=== PATIENT | female | born 1990 | race Caucasian/White ===

== ENCOUNTER 2022-12-09 05:05 | Emergency (ER) | payer BC, SELFPAY ==
[2022-12-09 05:14] VITALS: BP 128/80; PULSE 74; RESP 18; TEMP 36.5; O2SAT 98; BMI 35.4
--- NOTE | 2022-12-09 05:33 | ED_ITS ---
HPI - Female Genitourinary General Chief complaint: Urogenital Problems, Female Stated complaint: thinks IUD is moving Time Seen by Provider: 12/09/22 05:16 Source: patient Mode of arrival: ambulatory History of Present Illness HPI Narrative: 32-year-old female with IUD placed 2 months ago presents to the ED with what she describes as vaginal/cervical area pain. No upper abdominal pain. She says that she was working more heavily than usual around the yd today but no trauma. Says that she awoke with a crampy type feeling located in the high vagina/lower cervix. It has been present about 1 hour. She has not tried taking any Tylenol for her pain and she is not allowed to take NSAIDs due to her Crohn's disease and increased risk of bleeding. No fever. No trauma or injury. No diarrhea, no vomiting. Denies upper abdominal pain. She reports that she has had ovarian cysts before and this does feel quite different. No new sexual partners. Reports that she is prone to urinary tract infections and yeast infections. States that these feel different. Has not tried any other home treatments prior to coming to the emergency department. No recent antibiotics or infections per her report. Past medical history notable for Crohn's disease, obesity, depression. Home medications Humira, azathioprine, Lexapro, Breo Ellipta. She has had tubal ligation, multiple prior abdominal surgeries. Nonsmoker. ROS is notable for the gynecological symptoms as above only, otherwise denies times 12 systems. Related Data Home Medications Medication Instructions Recorded Confirmed adalimumab 40 mg/0.8 mL 40 mg subcut Q2W 02/12/22 12/09/22 subcutaneous syringe kit (Humira) azathioprine 100 mg tablet 100 mg PO QDAY 02/12/22 12/09/22 azathioprine 50 mg tablet 50 mg PO QDAY 02/12/22 12/09/22 escitalopram oxalate 20 mg tablet 20 mg PO QDAY 02/12/22 12/09/22 (Lexapro) inhalational spacing device (Space #1 ea 02/12/22 09/24/22 Chamber) lorazepam 1 mg tablet 1 mg PO QDAY PRN 02/12/22 12/09/22 fluticasone furoate 100 1 inh inhalation DAILY 12/09/22 12/09/22 mcg-vilanterol 25 mcg/dose inhalation powder (Breo Ellipta) Previous Rx's Medication Instructions Recorded albuterol sulfate 90 mcg/actuation 2 puff inhalation Q4H PRN 08/31/22 aerosol inhaler (Proventil HFA) shortness of breath or wheezing #8.5 grams inhalational spacing device #1 ea 08/31/22 (Aerochamber MV spacer) Allergies Allergy/AdvReac Type Severity Reaction Status Date / Time NSAIDS (Non-Steroidal Allergy Severe bleeding Verified 09/24/22 12:56 Anti-Inflamma infliximab [From Remicade] AdvReac Severe Arthritis Verified 09/24/22 12:56 sertraline AdvReac Unknown Nausea Verified 09/24/22 12:56 [facility] Medical History 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-10) Anemia ?D64.9 - Anemia, unspecified (ICD-10) Anxiety ?F41.9 - Anxiety disorder, unspecified (ICD-10) Bronchospasm ?J98.01 - Acute bronchospasm (ICD-10) Class 1 obesity ?E66.9 - Obesity, unspecified (ICD-10) Crohn's disease ?K50.90 - Crohn's disease, unspecified, without complications (ICD-10) History of depression ?Z86.59 - Personal history of other mental and behavioral disorders (ICD-10) History of scarlet fever (1996) ?Z86.19 - Personal history of other infectious and parasitic diseases (ICD- 10) History of scoliosis ?Z87.39 - Personal history of other diseases of the musculoskeletal system and connective tissue (ICD-10) History of vitamin D deficiency ?Z86.39 - Personal history of other endocrine, nutritional and metabolic disease (ICD-10) Hx of vaginal delivery Iron deficiency anemia ?D50.9 - Iron deficiency anemia, unspecified (ICD-10) Surgical History History of appendectomy (2010) ?Z90.49 - Acquired absence of other specified parts of digestive tract (ICD- 10) History of colonoscopy (08/19/21) ?Z98.890 - Other specified postprocedural states (ICD-10) History of colposcopy (12/2014) ?Z98.890 - Other specified postprocedural states (ICD-10) History of ovarian cystectomy ?Z98.890 - Other specified postprocedural states (ICD-10) ?Z87.42 - Personal history of other diseases of the female genital tract (ICD-10) History of surgical removal of terminal ileum (02/15/13) ?Z98.890 - Other specified postprocedural states (ICD-10) ?Z90.49 - Acquired absence of other specified parts of digestive tract (ICD- 10) Status post delivery (08/22/19) ?Z98.891 - History of uterine scar from previous surgery (ICD-10) Status post tubal ligation (08/22/19) ?Z98.51 - Tubal ligation status (ICD-10) Family History Mother Stroke, Onset Age: 40 High blood pressure IBS (irritable bowel syndrome) Migraine Multiple myeloma Father High cholesterol High blood pressure Osteoporosis Locfc-5-csntlwkkfqh deficiency Maternal Grandmother Ulcerative colitis Brother Nnczh-6-lkuswlrteqp deficiency Aunt Vmcif-8-bjatogpouem deficiency Social History Smoking Status: Never smoker Do you use any of these nicotine containing products: None Second hand tobacco smoke exposure: No How often do you have a drink containing alcohol: monthly or less How often do you have six or more drinks on one occasion: Never AUDIT-C Alcohol total score: 1 Non-prescribed substance use: denies use service: No Exam Const: Vital Signs, click to edit/add: Vital Signs - 24 hr 12/09/22 05:14 Temperature 97.7 F Pulse Rate [Pulse Oximeter] 74 Respiratory Rate 18 Blood Pressure [Le ft Upper Arm] 128/80 Pulse Oximetry 98 Oxygen Delivery Me thod Room Air Documenting provider has reviewed patient's vital signs: yes Common normals: no apparent distress General appearance: cooperative Other: Appears well-nourished, well-hydrated, not acutely ill. HENMT: Common normals: normocephalic Head and scalp: normocephalic Face and sinus: normal facial exam Mouth: oral and palatal mucosa normal Thr oat: posterior oropharynx normal Eye: Common normals: conjunctivae normal General eye: normal appearance of both eyes Conjunctiva: conjunctiva(e) normal Neck & C-Spine: Common normals: no lymphadenopathy Resp: Common normals: normal respiratory effort, no use of accessory muscles and clear to auscultation bilaterally Effort & inspection: able to speak in complete sentences Auscultation: clear to auscultation bilaterally Cardio: Common normals: regular rate, regular rhythm, S1 normal heart sound, S2 normal heart sound and no murmurs Rate: regular rate Rhythm: regular rhythm Heart sounds: S1 normal and S2 normal GI: Common normals: Normal to inspection, nondistended, normoactive bowel sounds present, soft to palpation, no hepatosplenomegaly and no masses Palpation: soft and no hepatosplenomegaly Other: Mildly tender to suprapubic region only, no rebound tenderness or guarding : Common normals: external appearance normal, appearance of the vagina normal, appearance of the cervix normal, adnexae non-tender and no adnexal masses Other: Ovaries are difficult to feel due to body habitus but no obvious mass. IUD strings are 2 cm long, appear to be Mirena due to dark hinojosa color. IUD tip not visible nor palpable. Scant amount of mucousy brown discharge normal in appearance. Cervix is multiparous in appearance. Cervix is mildly tender to manipulation but no severe tenderness. No obvious mass or polyp. Fundus is not tender to manipulation. Extremity: Common normals: normal to inspection, normal capillary refill and no pedal edema Neuro: Speech: speech normal Gait (neuro): normal gait Motor exam: no movement abnormalities noted Psych: Common normals: speech normal Attitude: calm and engaged Activity/motor behavior: appropriate eye contact Speech: normal speech Other: Mildly anxious but thought process logical. Insight and judgment seem appropriate Skin: Common normals: no rashes or lesions noted General skin exam: no rashes or lesions noted Course Vital Signs Vital signs: Initial Vital Signs Temperature 97.7 F 12/09/22 05:14 Temperature Source Temporal Artery Scan 12/09/22 05:14 Pulse Rate 74 12/09/22 05:14 Pulse Rhythm Regular 12/09/22 05:14 Respiratory Rate 18 12/09/22 05:14 Blood Pressure 128/80 12/09/22 05:14 Blood Pressure Mean 96 12/09/22 05:14 Pulse Oximetry 98 12/09/22 05:14 Oxygen Delivery Method Room Air 12/09/22 05:14 Vital Signs Temperature 97.7 F 12/09/22 05:14 Pulse Rate 74 12/09/22 05:14 Respiratory Rate 18 12/09/22 05:14 Blood Pressure 128/80 12/09/22 05:14 Pulse Oximetry 98 12/09/22 05:14 Oxygen Delivery Method Room Air 12/09/22 05:14 Temperature 97.7 F 12/09/22 05:14 Pulse Rate 74 12/09/22 05:14 Respiratory Rate 18 12/09/22 05:14 Blood Pressure 128/80 12/09/22 05:14 Pulse Oximetry 98 12/09/22 05:14 Oxygen Delivery Method Room Air 12/09/22 05:14 MDM - Female Genitourinary MDM Narrative Medical decision making narrative: Differential diagnosis includes urinary tract infection, bacterial vaginosis, IUD migration, ovarian pathology, uterine pathology or other intra-abdominal pathology. Exam is overall reassuring couple wet prep collected. Recommended urinalysis. IUD appears properly in place. Offered ultrasound to look at ovaries, uterus and IUD more closely. Patient states that this does not feel like it is higher up in the pelvis but rather something low, at the level of the cervix or vagina and declines ultrasound at this time which is certainly reasonable as her exam is reassuring. We will await the wet prep and urinalysis and treat with 1 [place] tablet. Re-evaluate after. Update: Elected to do a CT scan of the abdomen and pelvis because of the 3+ blood. There is no UVJ stone or hydronephrosis but there is a tiny stone in the bladder, I suspect this was recently passed, confirmed with radiology report. Pain much better after 1 [place] tablet. Findings discussed with patient. She is comfortable with this diagnosis and will follow up with Gynecology if her symptoms fail to improve. Lab Data Attestation: I reviewed the patient's lab results. Lab results narrative: Reassuring Labs: Lab Results 12/09/22 12/09/22 Range/Units 05:35 05:42 Urine Color Yellow (Yellow) Urine Appearance Cloudy A (Clear) Urine pH 5.5 (5.0-8.5) Ur Specific [place] >= 1.030 (1.000-1.030) Urine Protein 1+ A (Negative) Urine Glucose (UA) Negative (Negative) Urine Ketones Negative (Negative) Urine Blood 3+ A (Negative) Urine Nitrite Negative (Negative) Urine Bilirubin 1+ A (Negative) Urine Urobilinogen 0.2 (0.2-1.0) Ur Leukocyte Esterase Negative (Negative) Urine RBC 25-50 A (0-2) Urine WBC 2-5 (0-5) Ur Squamous Epith Cells Few (None-Few) Calcium Oxalate Crystal Few A (None) Urine Bacteria Few A (None) Urine Mucus Moderate A (None) Vaginal Trichomonas No Trichomonas Seen (None Seen) Vaginal Yeast No Yeast Seen (None Seen) Vaginal Clue Cells No Clue Cells Seen (None Seen) Imaging Data CT scan - abdomen: My impression: Tiny stone in the bladder, suspect recently passed. IUD normally in place Radiologist's impression: IMPRESSION: No evidence of nephroureterolithiasis or hydroureteronephrosis. Punctate hyperdensity layering within the left bladder near the region of the UVJ which may represent recently passed stone. Discharge Plan Discharge Clinical Impression: Kidney stone Patient Disposition: Home w/ Parent or Adult Condition: Improved Instructions: Kidney Stones (ED) Additional Instructions: As we discussed, your IUD seems perfectly in place and there are no signs of infection. This is great news. The CT scan shows a tiny kidney stone that has recently passed into the bladder. As we discussed, it often causes pain when it gets stuck at the junction between the ureter and the bladder. I suspect that this is what caused her pain. There does not seem to be any type of gynecological issue. Continue to drink lots of fluids and pass the stone. It does not tend to hurt as much passing outside of the body in women as min. You may continue to use Tylenol as needed for pain. There are no signs of other large stones hiding up in your kidneys that would cause recurrent problems. If you continue to have issues, I would follow-up with your ladder operator for a 2nd opinion on the IUD. If you start running high fevers over 100.4 in the next couple of days, this can be a sign of an infection and you should be re- evaluated. You may resume all typical activities. Activity Level: No Restrictions Discharge Diet: Regular Prescriptions: No Action (DME) Space Chamber Spacer See Rx Instructions .ROUTE .MEDSUPPLY Qty: 1 Patient Comments: USE DIRECTED WITH INHALER Rx Instructions: As directed Humira 40 mg/0.8 mL syringe kit 40 mg subcut Q2W escitalopram oxalate [Lexapro] 20 mg tablet 20 mg PO QDAY lorazepam 1 mg tablet 1 mg PO QDAY PRN azathioprine 100 mg tablet 100 mg PO QDAY azathioprine 50 mg tablet 50 mg PO QDAY albuterol sulfate [Proventil HFA] 90 mcg/actuation HFA aerosol inhaler 2 puff inhalation Q4H PRN (Reason: shortness of breath or wheezing) Qty: 8.5 11RF Rx Instructions: generic ok (DME) Aerochamber MV Spacer See Rx Instructions .Route Qty: 1 0RF Rx Instructions: As directed fluticasone furoate-vilanterol [Breo Ellipta] 100-25 mcg/dose blister with device 1 inh inhalation DAILY Follow Up/Referrals: Eula Cheatham MD [Primary Care Provider] - Stand Alone Forms: [facility] Info Instructions
[2022-12-09 05:54] LABS: Appearance Urine Cloudy (Clear); Bilirubin Urine 1+ (Negative); Blood Urine 3+ (Negative); Color Urine Yellow (Yellow); Glucose Urine Negative (Negative); Ketones Urine Negative (Negative); Leukocyte Esterase Urine Negative (Negative); Nitrite Urine Negative (Negative); Protein Urine 1+ (Negative); Specific Gravity Urine >= 1.030 (1.000-1.030); Urobilinogen Urine 0.2 (0.2-1.0); pH Urine 5.5 (5.0-8.5)
[2022-12-09 06:01] LABS: Clue Cells No Clue Cells Seen (None Seen); Trichomonas No Trichomonas Seen (None Seen); Yeast No Yeast Seen (None Seen)
[2022-12-09] MEDS: HYDROCODONE-ACETAMIN 5-325 MG 1 TAB PO (06:05)
--- NOTE | 2022-12-09 06:06 | CRLHL7_ITS ---
For Patients: As a result of the Century Cures Act, medical imaging exams and procedure reports are released immediately into your electronic medical record. You may view this report before your referring provider. If you have questions, please contact your health care provider. INDICATION: hematuria, pelvic pain, hx chrones TECHNIQUE: CT abdomen and pelvis without contrast, stone protocol. COMPARISON: None. FINDINGS: Kidney/ureters: Kidneys are normal in caliber. No kidney or ureteral stones and no hydronephrosis. No sign of perinephric inflammation. Ureters are normal in caliber.Punctate hyperdensity layering within the left bladder near the region of the UVJ which may represent recently passed stone. The bladder is decompressed. Liver/gallbladder/bile ducts: The liver is normal in size, shape and attenuation. Gallbladder is normal without visualized stones or inflammation. No biliary dilatation. Spleen/pancreas/adrenal glands: The spleen, adrenal glands and pancreas are within normal limits. GI tract: No evidence of bowel obstruction. Status post appendectomy. Mild fecal retention. Evaluation of bowel is limited due to lack of contrast. Abdominal wall/omentum/peritoneum: No free air or significant free fluid. No mass or inflammation. Lymph nodes: No lymphadenopathy. Pelvis: Unremarkable pelvis. IUD noted. Lower chest: Unremarkable. IMPRESSION: No evidence of nephroureterolithiasis or hydroureteronephrosis. Punctate hyperdensity layering within the left bladder near the region of the UVJ which may represent recently passed stone. Otherwise, no evidence of acute intra-abdominal/pelvic process on this unenhanced CT. Please note that all CT scans at this facility use dose modulation, iterative reconstruction, and/or weight-based dosing when appropriate to reduce radiation dose to as low as reasonably achievable. Dictated by Higinio Lou MD @ 12/09/2022 7:32:58 AM (Electronically Signed)
[2022-12-09 06:07] LABS: RBC Urine 25-50 (0-2)
[2022-12-09 06:08] LABS: Bacteria Urine Few; Calcium Oxalate Crystals Urine Few; Squamous Epithelial Cell Urine Few (None-Few)
[2022-12-09 06:09] LABS: Mucus Urine Moderate
== END 2022-12-09 07:50 | disposition home or self-care (01) ==
PROVIDERS: Emergency Provider Family Medicine; PCP Emergency Medicine
DX: N20.0 Calculus of kidney (principal)
CPT/HCPCS: 74176; 81003; 81015; 87086; 87210; 99283; 99284; A9270

== ENCOUNTER 2024-05-09 19:16 | Outpatient (CLI) | payer BC, SELFPAY ==
--- NOTE | 2024-06-05 12:37 | W.PM.SLEEP ---
Sleep Study Details Details Interpreting Provider: Miguel Date of Sleep Study: 05/09/24 Sleep Study Details: STUDY TYPE:? Home unattended ? BMI:? 37.2 ORDERING PROVIDER:Kanika Rivera INDICATION:? Concerned about sleep apnea ? SLEEP SUMMARY:? 338 minutes monitored RESPIRATORY SUMMARY:? AHI 4.3, supine AHI 10.9, left lateral 2.7 Low oxygen 90 Snoring 38.5% PERIODIC LIMB MOVEMENTS OF SLEEP:? Not recorded CARDIAC:? Range 59-112, mean 80.9 IMPRESSION:? This study does not demonstrate significant obstructive sleep apnea overall however the patient has mild sleep apnea in the supine position RECOMMENDATION: Recommend avoidance of supine sleep. If sleep disorder strongly suspected recommend an in-lab study.
== END 2024-05-09 19:17 | disposition home or self-care (01) ==
LOC: SLEEP 19:20
PROVIDERS: PCP Emergency Medicine; Visit Provider Otolaryngology
DX: G47.39 Other sleep apnea (principal); R06.83 Snoring
CPT/HCPCS: 95806

== ENCOUNTER 2024-05-11 13:06 | Outpatient (CLI) | payer BC, SELFPAY ==
--- NOTE | 2024-05-11 13:00 | CRLHL7_ITS ---
For Patients: As a result of the Century Cures Act, medical imaging exams and procedure reports are released immediately into your electronic medical record. You may view this report before your referring provider. If you have questions, please contact your health care provider. Indication: Sinusitis. Technique: Noncontrast axial CT of the paranasal sinuses with coronal reformats are provided. No comparisons. Findings: The visualized paranasal sinuses are clear. The ostiomeatal complexes are patent bilaterally. The visualized intraorbital contents appear within normal limits. Impression: Unremarkable CT of the paranasal sinuses. Please note that all CT scans at this facility use dose modulation, iterative reconstruction, and/or weight-based dosing when appropriate to reduce radiation dose to as low as reasonably achievable. Dictated by Gregorio Martinez MD @ 05/12/2024 4:59:42 PM (Electronically Signed)
== END 2024-05-11 13:07 | disposition home or self-care (01) ==
LOC: CT 13:07
PROVIDERS: PCP Emergency Medicine; Visit Provider Otolaryngology
DX: J32.9 Chronic sinusitis, unspecified (principal)
CPT/HCPCS: 70486

== ENCOUNTER 2024-06-06 10:12 | Outpatient (CLI) | payer BC, SELFPAY | END 2024-06-06 10:13 | disposition home or self-care (01) | LOC: LKVREF 10:14 | PROVIDERS: PCP Emergency Medicine; Visit Provider Emergency Medicine | DX: Z13.228 Encounter for screening for other metabolic disorders (principal) | CPT/HCPCS: 80048 ==

== ENCOUNTER 2024-06-15 10:36 | Day surgery (SDC) | payer BC, SELFPAY ==
[2024-06-15] VITALS (17 sets, daily range): BP systolic 105–126; BP diastolic 66–95; PULSE 71–90; RESP 16; TEMP 36.1–36.8; O2SAT 92–100; BMI 35.6
[2024-06-15] MEDS: OXYMETAZOLINE 0.05% NASAL SPRAY 2 SPRAY NOSTRIL-B (10:55)
[2024-06-15 11:10] LABS: Ur HCG Qualitative* Negative (Negative)
[2024-06-15] MEDS: SODIUM CHLORIDE 0.9 % (FLUSH) 10 ML SYRINGE IVF ×2 (11:40→14:51)
[2024-06-15] MEDS: LACTATED RINGERS 1000 ML 1,000 ML 100 ML IV (12:00)
[2024-06-15] MEDS: COCAINE HCL 4 % 4 ML SOLUTION NOSTRIL-B (12:23)
[2024-06-15] MEDS: AYR SALINE NASAL GEL 1 APPLIC NOSTRIL-B (12:35)
[2024-06-15] MEDS: BUPIVACAINE 0.5%/EPINEPHRINE 0.9 MG (30.9 ML) INJECTION (12:46)
[2024-06-15] MEDS: MUPIROCIN 1 GM PACKET 1 APPLIC TOPICAL (12:52)
[2024-06-15] MEDS: LACTATED RINGERS 1000 ML 1,000 ML 125 ML IV (13:00)
--- NOTE | 2024-06-15 13:00 | W.PM.ENTPROC ---
Procedure Note Date of procedure: 06/15/24 Procedure: Preoperative diagnosis chronic tonsillitis, adenotonsillar hypertrophy, upper airway obstruction, nasal obstruction, deviated nasal septum, left middle turbinate frank bullosa, nasal obstruction, nasal headache, bilateral inferior turbinate hypertrophy Postoperative diagnosis same Procedure adenotonsillectomy, septoplasty, endoscopic partial resection left middle turbinate frank bullosa, submucous partial resection bilateral inferior turbinates Under general endotracheal anesthesia the patient was prepped and draped in usual fashion. The [place] mouth gag was inserted the tongue retracted forward. No submucous cleft was noted on inspection or palpation. The right and left tonsils were removed with a combination of needlepoint cautery, bipolar cautery and suction cautery. Meticulous hemostasis was achieved. The adenoid pad was visualized with a laryngeal mirror and removed with suction cautery. The nose was decongested injected. Incision was made the septal cartilage just anterior to the right area 3 deflection. Mucosa on either side the deflection was elevated a large piece of cartilage and bone resected. This was then trimmed and returned to intraseptal space to medialized the septum. In the frank bullosa was incised along its lateral aspect and the bone infractured and then crushed with the [place] forceps. As stab incision was made in the anterior of the right inferior turbinate a tunnel created with a [place] dissector. A conservative anterior submucous resection was performed in the Coblation was used to cauterize intramurally along the inferior 10%. This was repeated on the opposite side in identical fashion. Merocel packing coated in Bactroban was placed above the septal flap on each side. The patient procedure well was taken recovery in satisfactory condition. The patient was extubated in the operating room taken recovery in satisfactory condition. Blood loss was less than 10 mL. Surgeon: Nazario Rivera MD
--- NOTE | 2024-06-15 13:16 | W.ANESCHARGE ---
Anesthesia Charges Start Date/Time Anesthesia Start Date: 06/15/24 Anesthesia Start Time: 12:00 Stop Date/Time Anesthesia Stop Date: 06/15/24 Anesthesia Stop Time: 13:18
--- NOTE | 2024-06-15 13:16 | W.ANESCHARGE ---
Anesthesia Charges Start Date/Time Anesthesia Start Date: 06/15/24 Anesthesia Start Time: 12:00 Stop Date/Time Anesthesia Stop Date: 06/15/24 Anesthesia Stop Time: 13:18
[2024-06-15] MEDS: fentaNYL 100 MCG/2 ML inj 50 MCG IVP ×3 (13:25→13:56)
[2024-06-15] MEDS: OXYCODONE 1 MG/ML ORAL SOLN 5 MG PO (14:20)
[2024-06-15] MEDS: HYDROmorphone 0.5 mg/0.5 ml inj IVP (14:51)
[2024-06-15] MEDS: ACETAMINOPHEN 160 MG/5 ML CUP 320 MG PO (14:51)
[2024-06-15] MEDS: hydrOXYzine pamoate 25 MG CAPSULE PO (15:35)
== END 2024-06-15 15:45 | disposition home or self-care (01) ==
LOC: OR 10:36
PROVIDERS: Anesthesiology; PCP Emergency Medicine; Visit Provider Otolaryngology
PROC: (CPT 42821; principal; 2024-06-15 12:00)
PROC: (CPT 31231; 2024-06-15 12:00)
DX: J35.01 Chronic tonsillitis (principal); J35.3 Hypertrophy of tonsils with hypertrophy of adenoids; J34.2 Deviated nasal septum; J34.3 Hypertrophy of nasal turbinates; J34.89 Other specified disorders of nose and nasal sinuses; R51.9 Headache, unspecified
CPT/HCPCS: 42821; 30520; 30140; 31240; 00160; 81025; 88304; A9270; J0330; J1100; J1171; J2250; J2405; J2704; J2710; J3010; J7120

== ENCOUNTER 2024-08-30 16:29 | Outpatient (CLI) | payer BC, SELFPAY | END 2024-08-30 16:30 | disposition home or self-care (01) | LOC: NFLDREF 09-03 02:57 | PROVIDERS: PCP Emergency Medicine; Referring Provider Emergency Medicine; Visit Provider Nurse Practitioner Family | DX: R30.0 Dysuria (principal); Z11.3 Encounter for screening for infections with a predominantly sexual mode of transmission | CPT/HCPCS: 87086; 87491; 87591 ==

== ENCOUNTER 2024-09-01 09:35 | Emergency (ER) | payer BC, SELFPAY ==
[2024-09-01 09:45] VITALS: BP 114/82; PULSE 91; RESP 18; TEMP 36.4; O2SAT 97
--- NOTE | 2024-09-01 09:56 | ED_ITS ---
HPI - General Adult General Chief complaint: Flank Pain Stated complaint: Poss kidney stone, pain on left side Time Seen by Provider: 09/01/24 09:49 History of Present Illness HPI narrative: Patient is a 34-year-old woman who comes in today with left flank pain. She has had no fevers no chills no night sweats. She was seen in urgent care 2 days ago and had some mild hematuria dental drink more fluid. No signs of UTI. Patient has a history of kidney stones in the past. She has a has a very strong family history of kidney stones. She states the pain is 3/10 is located in the left flank. No suprapubic pain no other abdominal pain no nausea no vomiting. Related Data Home Medications ?Medication ?Instructions ?Recorded ?Confirmed azathioprine 100 mg tablet 100 mg PO QDAY 02/12/22 09/01/24 azathioprine 50 mg tablet 50 mg PO QDAY 02/12/22 09/01/24 adalimumab-adaz 40 mg/0.4 mL 40 mg subcut 06/06/24 08/30/24 subcutaneous pen injector (Hyrimoz(CF) Pen) atomoxetine 40 mg capsule 40 mg PO QAM 06/06/24 09/01/24 (Strattera) dextroamphetamine-amphetamine 10 10 mg PO BID 09/01/24 09/01/24 mg tablet (Adderall) Previous Rx's ?Medication ?Instructions ?Recorded albuterol sulfate 90 mcg/actuation 2 puff inhalation Q4H PRN 02/10/24 aerosol inhaler (Proventil HFA) shortness of breath or wheezing #8.5 grams ondansetron 4 mg disintegrating 4 mg PO Q8H #10 tabs 06/15/24 tablet fluconazole 100 mg tablet 100 mg PO ONCE #1 tab 09/01/24 (Diflucan) sulfamethoxazole 800 1 tab PO BID #10 tabs 09/01/24 mg-trimethoprim 160 mg tablet (Bactrim DS) Allergies Allergy/AdvReac Type Severity Reaction Status Date / Time NSAIDS (Non-Steroidal Allergy Severe bleeding Verified 09/01/24 10:58 Anti-Inflamma infliximab (From Remicade) AdvReac Severe Arthritis Verified 09/01/24 10:58 sertraline AdvReac Unknown Nausea Verified 09/01/24 10:58 Review of Systems Status of ROS: Reports: 10 or more systems reviewed and unremarkable except as noted in History and below [facility] Medical History History of rsver-2-tildoepnipg deficiency ?Z86.39 - Personal history of other endocrine, nutritional and metabolic disease (ICD-10) Pre-op exam ?Z01.818 - Encounter for other preprocedural examination (ICD-10) Mild intermittent asthma ?J45.20 - Mild intermittent asthma, uncomplicated (ICD-10) Otitis media ?H66.90 - Otitis media, unspecified, unspecified ear (ICD-10) Eustachian tube dysfunction ?H69.90 - Unspecified Eustachian tube disorder, unspecified ear (ICD-10) Sinusitis ?J32.9 - Chronic sinusitis, unspecified (ICD-10) Acute asthma exacerbation ?J45.901 - Unspecified asthma with (acute) exacerbation (ICD-10) Immunocompromised state due to drug therapy ?D84.821 - Immunodeficiency due to drugs (ICD-10) ?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) Cough ?R05.9 - Cough, unspecified (ICD-10) Vaginal discharge ?N89.8 - Other specified noninflammatory disorders of vagina (ICD-10) Serous otitis media ?H65.90 - Unspecified nonsuppurative otitis media, unspecified ear (ICD-10) Hx of vaginal delivery History of vitamin D deficiency ?Z86.39 - Personal history of other endocrine, nutritional and metabolic disease (ICD-10) History of scarlet fever (1996) ?Z86.19 - Personal history of other infectious and parasitic diseases (ICD- 10) Crohn's disease ?K50.90 - Crohn's disease, unspecified, without complications (ICD-10) Class 1 obesity ?E66.9 - Obesity, unspecified (ICD-10) Anxiety ?F41.9 - Anxiety disorder, unspecified (ICD-10) History of scoliosis ?Z87.39 - Personal history of other diseases of the musculoskeletal system and connective tissue (ICD-10) History of depression ?Z86.59 - Personal history of other mental and behavioral disorders (ICD-10) Anemia ?D64.9 - Anemia, unspecified (ICD-10) Iron deficiency anemia ?D50.9 - Iron deficiency anemia, unspecified (ICD-10) Bronchospasm ?J98.01 - Acute bronchospasm (ICD-10) Surgical History Status post tubal ligation (08/22/19) ?Z98.51 - Tubal ligation status (ICD-10) History of colposcopy (12/2014) ?Z98.890 - Other specified postprocedural states (ICD-10) Status post delivery (08/22/19) ?Z98.891 - History of uterine scar from previous surgery (ICD-10) History of surgical removal of terminal ileum (02/15/13) ?Z98.890 - Other specified postprocedural states (ICD-10) ?Z90.49 - Acquired absence of other specified parts of digestive tract (ICD- 10) History of ovarian cystectomy ?Z98.890 - Other specified postprocedural states (ICD-10) ?Z87.42 - Personal history of other diseases of the female genital tract (ICD-10) History of colonoscopy (08/19/21) ?Z98.890 - Other specified postprocedural states (ICD-10) History of appendectomy (2010) ?Z90.49 - Acquired absence of other specified parts of digestive tract (ICD- 10) Family History Mother Stroke, Onset Age: 40 High blood pressure IBS (irritable bowel syndrome) Migraine Multiple myeloma Father High cholesterol High blood pressure Osteoporosis Xdasw-1-tjyqxsoxvht deficiency Maternal Grandmother Ulcerative colitis Brother Zfsmr-1-lmiacrlrmjv deficiency Aunt Xsfxv-5-hjbqrhxkoxr deficiency Social History Smoking Status: Never smoker Do you use any of these nicotine containing products: None Second hand tobacco smoke exposure: No How often do you have a drink containing alcohol: never How often do you have six or more drinks on one occasion: Never AUDIT-C Alcohol total score: 0 Non-prescribed substance use: denies use Non-prescribed substance use details: thc gummies Caffeine: Yes (tea) Are you using contraception or practicing any form of control: No (multiple forms) service: No Exam Narrative: Exam Narrative: EXAM GENERAL: Patient appears comfortable and well. EYES: No scleral icterus. LYMPH: No supraclavicular or cervical lymphadenopathy. SKIN: Visible skin seen during exam normal or with benign process only. EXT: No dependent lower extremity pedal edema. HEART: Regular rate and rhythm with no murmurs, rubs, or gallops. LUNGS: Clear to auscultation bilaterally with no crackles or wheezes. ABD: Soft, non tender, non distended. PSYCH: Good eye contact, speech is not pressured. Const: Vital Signs, click to edit/add: Vital Signs - 24 hr 09/01/24 09:45 Temperature 97.6 F Pulse Rate [Pulse Oximeter] 91 Respiratory Rate 18 Blood Pressure [Ri ght Upper Arm] 114/82 Pulse Oximetry 97 Oxygen Delivery Me thod Room Air Course Course ED Course: Patient seen and examined. CT abdomen pelvis CBC basic metabolic panel UA pending 1 L normal saline given 30 mg of IV Toradol given. Vital Signs Vital signs: Initial Vital Signs Temperature 97.6 F 09/01/24 09:45 Temperature Source Temporal Artery Scan 09/01/24 09:45 Pulse Rate 91 09/01/24 09:45 Respiratory Rate 18 09/01/24 09:45 Blood Pressure 114/82 09/01/24 09:45 Blood Pressure Mean 92 09/01/24 09:45 Blood Pressure Position Sitting 09/01/24 09:45 Pulse Oximetry 97 09/01/24 09:45 Oxygen Delivery Method Room Air 09/01/24 09:45 Vital Signs Temperature 97.6 F 09/01/24 09:45 Pulse Rate 91 09/01/24 09:45 Respiratory Rate 18 09/01/24 09:45 Blood Pressure 114/82 09/01/24 09:45 Pulse Oximetry 97 09/01/24 09:45 Oxygen Delivery Method Room Air 09/01/24 09:45 Temperature 97.6 F 09/01/24 09:45 Pulse Rate 95 09/01/24 11:30 Respiratory Rate 18 09/01/24 11:30 Blood Pressure 115/77 09/01/24 11:30 Pulse Oximetry 97 09/01/24 11:30 Oxygen Delivery Method Room Air 09/01/24 11:30 Medications Administered Medications: Discontinued Medications Generic Name Dose Route Start Last Admin Trade Name Ben PRN Reason Stop Dose Admin Sodium Chloride 1,000 mls @ 1,000 mls/hr 09/01/24 09:58 09/01/24 10:51 0.9 % Sodium Chloride 1000 Ml IV 09/01/24 10:57 1,000 mls/hr .Q1H GEORGES Administration Ketorolac Tromethamine 30 mg 09/01/24 09:58 09/01/24 10:52 Ketorolac 30 Mg/Ml Inj IVP 09/01/24 09:59 30 mg ONCE ONE Administration Medical Decision Making MDM Narrative Medical decision making narrative: Patient presents with left-sided flank pain. She is concerned she has a kidney stone as she has history of kidney stones. CT shows no evidence of kidney stones were any other related pathology. UA is consistent with urinary tract infection will be sent for culture. She has no signs of sepsis syndrome and otherwise appears to be in no distress. She has normal exam and reasonably normal vital signs. I did treated with Bactrim double strength p.o. b.i.d. for 5 days and will see her back in follow-up on a p.r.n. basis. Lab Data Labs: Lab Results 09/01/24 09/01/24 Range/Units 09:43 10:45 WBC 7.32 (4.50-11.00) K/uL RBC 4.66 (4.00-5.20) m/uL Hgb 13.1 (12.0-16.0) gm/dL Hct 41.5 (33.0-51.0) % MCV 89 (80-100) fL MCH 28 (26-34) pg MCHC 32 (32-36) gm/dL RDW Coeff of Abdirahman 12.3 (11.5-15.5) % Plt Count 294 (140-440) K/uL Neut % (Auto) 51.9 (42.0-72.0) % Lymph % (Auto) 38.0 (20-44) % [place] % (Auto) 7.5 (0.0-11.0) % Eos % (Auto) 2.2 (0.0-7.0) % Baso % (Auto) 0.3 (0.0-3.0) % Neut # (Auto) 3.80 (1.7-7.0) K/uL Lymph # (Auto) 2.78 (0.90-2.90) K/uL [place] # (Auto) 0.50 (0.00-0.90) K/UL Eos # (Auto) 0.16 (0.00-0.50) K/uL Baso # (Auto) 0.02 (0.00-0.30) K/uL Abs Immat Gran (auto) 0.01 (0.00-0.30) K/uL Imm/Tot Granulo (auto) 0.1 % Sodium 138 (135-149) mmol/L Potassium 3.6 (3.6-5.1) mmol/L Chloride 105 (96-114) mmol/L Carbon Dioxide 26 (20-32) mmol/L Anion Gap 7 (7-15) mEq/L BUN 8 (5-24) mg/dL Creatinine 0.4 L (0.5-1.5) mg/dL Estimated GFR 131 ml/min Glucose 144 H (60-115) mg/dL Calcium 9.3 (8.4-10.6) mg/dL Urine Color Yellow (Yellow) Urine Appearance Clear (Clear) Urine pH 7.0 (5.0-8.5) Ur Specific [place] 1.020 (1.000-1.030) Urine Protein Negative (Negative) Urine Glucose (UA) Negative (Negative) Urine Ketones Negative (Negative) Urine Blood 1+ A (Negative) Urine Nitrite Negative (Negative) Urine Bilirubin Negative (Negative) Urine Urobilinogen 0.2 (0.2-1.0) Ur Leukocyte Esterase Trace A (Negative) Urine RBC 2-5 A (0-2) Urine WBC 2-5 (0-5) Ur Squamous Epith Cells Many A (None-Few) Urine Bacteria Moderate A (None) Discharge Plan Discharge Clinical Impression: Urinary tract infection Patient Disposition: Home, Self-Care Condition: Stable Instructions: Urinary Tract Infection in Women (ED) Additional Instructions: Bactrim as directed Tylenol Motrin Rest Fluids Follow-up as needed. Activity Level: No Restrictions Discharge Diet: Regular Prescriptions: New sulfamethoxazole-trimethoprim [Bactrim DS] 800-160 mg tablet 1 tab PO BID Qty: 10 0RF fluconazole [Diflucan] 100 mg tablet 100 mg PO ONCE Qty: 1 0RF No Action azathioprine 100 mg tablet 100 mg PO QDAY azathioprine 50 mg tablet 50 mg PO QDAY adalimumab-adaz [Hyrimoz(CF) Pen] 40 mg/0.4 mL pen injector 40 mg subcut atomoxetine [Strattera] 40 mg capsule 40 mg PO QAM dextroamphetamine-amphetamine [Adderall] 10 mg tablet 10 mg PO BID Rx Instructions: administer doses at least 4-6 hours apart ondansetron 4 mg tablet,disintegrating 4 mg PO Q8H Qty: 10 0RF albuterol sulfate [Proventil HFA] 90 mcg/actuation HFA aerosol inhaler 2 puff inhalation Q4H PRN (Reason: shortness of breath or wheezing) Qty: 8.5 0RF Rx Instructions: generic ok Follow Up/Referrals: Eula Cheatham MD [Primary Care Provider] - Stand Alone Forms: MyHealth Info Instructions
--- NOTE | 2024-09-01 10:24 | CRLHL7_ITS ---
For Patients: As a result of the Century Cures Act, medical imaging exams and procedure reports are released immediately into your electronic medical record. You may view this report before your referring provider. If you have questions, please contact your health care provider. INDICATION: Bilateral flank pain, left greater right. COMPARISON: 12/09/2022. TECHNIQUE: Noncontrast CT mm pelvis. FINDINGS: KUB: No renal stones. No hydronephrosis. No ureteral dilatation. Normal bladder. Pelvis: IUD. Liver and gallbladder: Unremarkable. Spleen: Small splenule. Otherwise unremarkable. Pancreas: Unremarkable. Adrenal glands: Normal. GI: Postop changes of bowel resection reanastomosis in the right lower quadrant. No abnormal bowel distention, bowel wall thickening or inflammatory change. Parity and colon no free-air or free-fluid. Lymph nodes: No adenopathy. Abdominal wall: No hernias. Vascular: Normal caliber abdominal aortic. Lung bases: Slight atelectasis at the lung bases posteriorly. Skeletal: Normal alignment. No fractures. IMPRESSION: 1. No renal stones. No hydronephrosis. 2. No free air or free fluid. 3. No abnormal bowel distention, bowel wall thickening or inflammation. Please note that all CT scans at this facility use dose modulation, iterative reconstruction, and/or weight-based dosing when appropriate to reduce radiation dose to as low as reasonably achievable. Dictated by Flo Lucero MD @ 09/01/2024 10:58:23 AM (Electronically Signed)
[2024-09-01 10:41] LABS: Appearance Urine Clear (Clear); Bilirubin Urine Negative (Negative); Blood Urine 1+ (Negative); Color Urine Yellow (Yellow); Glucose Urine Negative (Negative); Ketones Urine Negative (Negative); Leukocyte Esterase Urine Trace (Negative); Nitrite Urine Negative (Negative); Protein Urine Negative (Negative); Urobilinogen Urine 0.2 (0.2-1.0)
[2024-09-01] MEDS: 0.9 % SODIUM CHLORIDE 1000 ml 1,000 ML IV (10:51)
[2024-09-01] MEDS: KETOROLAC 30 MG/ML inj IVP (10:52)
[2024-09-01 11:00] VITALS: BP 114/73; PULSE 90; RESP 18; O2SAT 96
[2024-09-01 11:05] LABS: Basophils Absolute Auto 0.02 K/uL (0.00-0.30); Basophils Percent Auto 0.3 % (0.0-3.0); Eosinophils Absolute Auto 0.16 K/uL (0.00-0.50); Eosinophils Percent Auto 2.2 % (0.0-7.0); Hematocrit 41.5 % (33.0-51.0); Hemoglobin* 13.1 gm/dL (12.0-16.0); Immature Granulocytes Abs Auto 0.01 K/uL (0.00-0.30); Immature Granulocytes Pct Auto 0.1 %; Lymphocytes Absolute Auto 2.78 K/uL (0.90-2.90); Mean Corpuscular HGB Conc 32 gm/dL (32-36); Mean Corpuscular Hemoglobin 28 pg (26-34); Mean Corpuscular Volume 89 fL (80-100); Monocytes Percent Auto 7.5 % (0.0-11.0); Neutrophils Percent Auto 51.9 % (42.0-72.0); Platelet Count* 294 K/uL (140-440); RDW Coefficient of Variation % 12.3 % (11.5-15.5); Red Blood Count 4.66 m/uL (4.00-5.20); White Blood Count* 7.32 K/uL (4.50-11.00)
[2024-09-01 11:09] LABS: Bacteria Urine Moderate; Squamous Epithelial Cell Urine Many (None-Few)
[2024-09-01 11:17] LABS: Chloride* 105 mmol/L (96-114)
[2024-09-01 11:18] LABS: Potassium* 3.6 mmol/L (3.6-5.1); Sodium* 138 mmol/L (135-149)
[2024-09-01 11:20] LABS: Creatinine* 0.4 mg/dL (0.5-1.5); Estimated Glomerular Filt Rate 131 ml/min
[2024-09-01 11:21] LABS: Anion Gap 7 mEq/L (7-15); Blood Urea Nitrogen* 8 mg/dL (5-24); Calcium* 9.3 mg/dL (8.4-10.6); Carbon Dioxide* 26 mmol/L (20-32); Glucose* 144 mg/dL (60-115)
[2024-09-01 11:30] VITALS: BP 115/77; PULSE 95; RESP 18; O2SAT 97
[2024-09-01 11:33] LABS: Slide Review Reflex No
== END 2024-09-01 12:06 | disposition home or self-care (01) ==
PROVIDERS: Emergency Provider Internal Medicine; PCP Emergency Medicine
DX: N39.0 Urinary tract infection, site not specified (principal)
CPT/HCPCS: 36415; 74176; 80048; 81001; 81003; 85025; 87086; 96374; 99283; 99284; J1885; J7030

== ENCOUNTER 2024-09-11 09:02 | Outpatient (CLI) | payer BC, SELFPAY | END 2024-09-11 09:03 | disposition home or self-care (01) | LOC: NFLDREF 09-17 01:46 | PROVIDERS: PCP Emergency Medicine; Referring Provider Emergency Medicine; Visit Provider Family Medicine | DX: R30.0 Dysuria (principal) | CPT/HCPCS: 87086 ==

== ENCOUNTER 2024-11-26 08:18 | Outpatient (CLI) | payer BC, SELFPAY | END 2024-11-26 08:19 | disposition home or self-care (01) | LOC: NFLDREF 11-28 06:17 | PROVIDERS: PCP Emergency Medicine; Referring Provider Emergency Medicine; Visit Provider Emergency Medicine | DX: E66.811 Obesity, class 1 (principal); Z68.32 Body mass index [BMI] 32.0-32.9, adult; Z13.228 Encounter for screening for other metabolic disorders; Z13.6 Encounter for screening for cardiovascular disorders | CPT/HCPCS: 80048; 80061 ==

== ENCOUNTER 2024-11-28 10:47 | Outpatient (CLI) | payer BC, SELFPAY ==
[2024-11-28 22:57] LABS: Chlamydia DNA Amplified* NOT DETECTED (No Detected); GC DNA Amplified* NOT DETECTED (No Detected)
[2024-12-01 00:56] LABS: HPV Source Cervical; HPV, High Risk by TMA Not Detected
== END 2024-11-28 10:48 | disposition home or self-care (01) ==
PROVIDERS: PCP Emergency Medicine; Visit Provider Emergency Medicine
DX: Z12.4 Encounter for screening for malignant neoplasm of cervix (principal); Z11.51 Encounter for screening for human papillomavirus (HPV); Z11.3 Encounter for screening for infections with a predominantly sexual mode of transmission; Z11.59 Encounter for screening for other viral diseases; Z11.4 Encounter for screening for human immunodeficiency virus [HIV]
CPT/HCPCS: 86592; 86703; 86803; 87340; 87491; 87591; 87624; 87625; 88141; 88142

== ENCOUNTER 2024-12-04 12:00 | Outpatient (CLI) | payer BC, SELFPAY | END 2024-12-04 12:01 | disposition home or self-care (01) | PROVIDERS: PCP Emergency Medicine; Visit Provider Emergency Medicine | DX: N91.2 Amenorrhea, unspecified (principal); R00.2 Palpitations | CPT/HCPCS: 83001; 84443 ==